=== PATIENT | male | born 1945 | race Caucasian/White ===

== ENCOUNTER → 2017-01-19 | Outpatient (CLI) | payer MEDICARE, BC ==
[~2017-01-19] MED LIST: ALLO100T51 PO; AMOX-351 PO; DULO20CA PO; HYDR-4246 PO; IOHEXOL 300 MG/ML 50ml INJECTION ONE; MULT-543 PO; NORMAL SALINE 100 ML ONE; OMEP20CA81 PO; SALINE FLUSH 10ml SYRINGE ONE
[2017-01-19 11:47] LABS: HCT - HEMATOCRIT 41.6 % (41-53); MEAN CORPUSCULAR HGB 23.2 UUG (26-34); MEAN CORPUSCULAR HGB CONC(MCHC 31.3 GM/DL (31-37); MEAN CORPUSCULAR VOLUME 74.2 UM3 (80-100); MEAN PLATELET VOLUME 10.2 UM3 (9.4-12.4); RED BLOOD COUNT 5.61 M/MM3 (4.50-5.90); WBC - WHITE BLOOD COUNT 6.8 T/MM3 (4.5-11.0)
--- NOTE | 2017-01-19 11:53 | DI ---
Indication: ITS.REASON: C64.1 Malignant neoplasm of right kidney, except renal pelvis PROCEDURE: CT HEAD W/WO CONTRAST: Comparison: Head CT dated April 19, 2014 Technique: Axial CT images through the head were performed without and with IV contrast. Iterative Reconstruction dose reducing technique was utilized. Contrast: Omnipaque 300 50mL FINDINGS: The ventricles are of normal size, shape, and contour for the patient's age. The brainstem, cerebellum, and cerebral hemispheres have a normal morphology and CT attenuation. No hemorrhage, mass effect, mass lesions, or edema is evident. No areas of abnormal enhancement are seen. The visualized portions of the skull base, sinuses, and calvarium demonstrate no abnormality. IMPRESSION: Unremarkable head CT for the patient's age, both before and after contrast. No evidence of intracranial metastatic disease. .
[2017-01-19 11:54] LABS: ALBUMIN 4.1 G/DL (3.5-5.0); ALBUMIN/GLOBULIN RATIO 1.3 RATIO (1.1-2.2); ALKALINE PHOSPHATASE 96 U/L (38-126); ALT (SGPT) 34 U/L (21-72); ANION GAP 11 MEQ/L (5-15); AST (SGOT) 22 U/L (17-59); BUN/CREATININE RATIO 13 RATIO (6-26); CALCIUM 9.4 MG/DL (8.4-10.2); CHLORIDE 110 MEQ/L (98-107); CO2 - CARBON DIOXIDE 24 MEQ/L (22-30); CREATININE 1.3 MG/DL (0.8-1.5); GLOMERULAR FILTRATION RATE 55; GLUCOSE 104 MG/DL (75-110); LDH 318 U/L (313-618); POTASSIUM 4.5 MEQ/L (3.6-5); SODIUM 145 MEQ/L (134-144); TOTAL PROTEIN 7.2 G/DL (6.3-8.2)
[2017-01-19 12:09] LABS: BASOPHILS # (MANUAL) 0.1 T/MM3 (0-0.2); EOSINOPHILS # (MANUAL) 0.1 T/MM3 (0-0.5); LYMPHOCYTES # (MANUAL) 1.4 T/MM3 (1-4.8); MONOCYTES # (MANUAL) 0.9 T/MM3 (0-0.8); NEUTROPHILS #(MANUAL)-ABSOLUTE 4.4 T/MM3 (1.8-7.7); TOTAL CELLS COUNTED 100 %
== END ==
LOC: IMA 10:30
PROVIDERS: ATTEND Internal Medicine Hematology & Oncology
DX: C64.1 Malignant neoplasm of right kidney, except renal pelvis (principal)
CPT/HCPCS: 36415; 70470; 80053; 83615; 85007; 85027; J7050; Q9967